=== PATIENT | female | born 1990 | race American Indian/Alaskan Native ===

== ENCOUNTER 2019-01-03 13:01 | Emergency (ER) | payer MEDICAID, OTHER ==
[2019-01-03] MEDS ORDERED: NACL 0.9% 1000 ML 1,000 ML IV ONE (13:14)
--- NOTE | 2019-01-03 13:14 | Emergency Department Report ---
Chief Complaint: Nausea/Vomiting/Diarrhea Stated Complaint: 7WKS /ABD PAIN/DEHYDRATION - HPI History of Present Illness: LMP 11/09 G1 PMH NONE PSH L KNEE RX ZOFRAN GIVEN TO HER BY OBGYN- DONT KNOW NAME NO VAG BLEED OR DC SUPRAPUBIC DC NO CIG/ETOH/DRUGS CC WEAK, FATIGUE, VOMITING MSE COMPLETED MSE screening note: Focused history and physical exam performed. Due to findings the following was ordered: ED Disposition for MSE Condition: Stable
[2019-01-03 14:10] LABS: Hemoglobin 13.1 gm/dl (10.1-14.3); Mean Corpuscular HGB Conc 34 % (30-34); Mean Corpuscular Volume 81 fl (79-97); Platelet Count 370 K/mm3 (140-440); Red Blood Count 4.84 M/mm3 (3.65-5.03); Red Cell Distribution Width 13.5 % (13.2-15.2)
[2019-01-03 14:16] LABS: BUN/Creatinine Ratio 17; Blood Urea Nitrogen 10 mg/dL (7-17); Calcium 9.4 mg/dL (8.4-10.2); Hemolysis Index 5
[2019-01-03 15:00] LABS: Bilirubin,Urine NEG (Negative); Blood,Urine NEG (Negative); Color,Urine Yellow (Yellow); Mucus,Urine 3+ /HPF; Urobilinogen,Urine < 2.0 mg/dL (<2.0)
[2019-01-03 15:02] LABS: HCG Qualitative,Urine Positive (Negative)
[2019-01-03] MEDS ORDERED: REGLAN IV ONE (15:18)
--- NOTE | 2019-01-03 16:02 | Emergency Department Report ---
ED N/V/D HPI - General Chief complaint: Nausea/Vomiting/Diarrhea Stated complaint: 7WKS /ABD PAIN/DEHYDRATION Time Seen by Provider: 01/03/19 13:14 Source: patient, family Mode of arrival: Wheelchair Limitations: No Limitations - History of Present Illness Initial comments: This is a 28-year-old female who is 7 weeks nontoxic, well nourished in appearance, no acute signs of distress presents to the ED with c/o of nausea and vomiting. Patient describes vomiting as food content. Patient denies any vaginal bleeding. Patient denies any abdominal pain, pelvic pain, chest pain, short of breath, fever, chills, headache, stiff neck, numbness or tingling. Patient denies any diarrhea or constipation. Patient denies any urinary sympto ms. Patient denies any recent travels. Patient denies any drug allergies significant past medical history. MD complaint: nausea, vomiting Description of Vomiting: food contents Associated Abdominal Pain: No Radiation: none Pain Scale: 0 Improves with: none Worsens with: none Associated Symptoms: nausea/vomiting. denies: myalgias, chest pain, cough, diaphoresis, fever/chills, headaches, loss of appetite, malaise, rash, dysuria, shortness of breath, syncope, weakness - Related Data Previous Rx's Medication Instructions Recorded Last Taken Type Acetaminophen/Codeine [Tylenol #3] 1 tab PO TID PRN #20 tab 02/10/15 Unknown Rx Ciprofloxacin HCl [Cipro] 500 mg PO BID #14 tablet 02/10/15 Unknown Rx Promethazine [Phenergan] 25 mg PO BID #14 tab 02/10/15 Unknown Rx Metoclopramide [Reglan] 10 mg PO BID PRN #20 tab 01/03/19 Unknown Rx Allergies Allergy/AdvReac Type Severity Reaction Status Date / Time No Known Allergies Allergy Unverified 02/09/15 17:32 ED Review of Systems ROS: Stated complaint: 7WKS /ABD PAIN/DEHYDRATION Other details as noted in HPI Constitutional: denies: chills, fever Eyes: denies: eye pain, eye discharge, vision change ENT: denies: ear pain, throat pain Respiratory: denies: cough, shortness of breath, wheezing Cardiovascular: denies: chest pain, palpitations Endocrine: no symptoms reported Gastrointestinal: nausea, vomiting. denies: abdominal pain, diarrhea Genitourinary: denies: urgency, dysuria, discharge Musculoskeletal: denies: back pain, joint swelling, arthralgia Skin: denies: rash, lesions Neurological: denies: headache, weakness, paresthesias Psychiatric: denies: anxiety, depression Hematological/Lymphatic: denies: easy bleeding, easy bruising ED Past Medical Hx - Past Medical History Previous Medical History?: No - Surgical History Past Surgical History?: Yes Additional Surgical History: L Knee surgery - Social History Smoking Status: Unknown if ever smoked Substance Use Type: None - Medications Home Medications: Home Medications Medication Instructions Recorded Confirmed Last Taken Type Acetaminophen/Codeine [Tylenol #3] 1 tab PO TID PRN #20 tab 02/10/15 Unknown Rx Ciprofloxacin HCl [Cipro] 500 mg PO BID #14 tablet 02/10/15 Unknown Rx Promethazine [Phenergan] 25 mg PO BID #14 tab 02/10/15 Unknown Rx Metoclopramide [Reglan] 10 mg PO BID PRN #20 tab 01/03/19 Unknown Rx ED Physical Exam - General Limitations: No Limitations General appearance: alert, in no apparent distress - Head Head exam: Present: atraumatic, normocephalic - Neck Neck exam: Present: normal inspection, full ROM - Respiratory Respiratory exam: Present: normal lung sounds bilaterally. Absent: respiratory distress, wheezes, rales, rhonchi, stridor, chest wall tenderness, accessory muscle use, decreased breath sounds, prolonged expiratory - Cardiovascular Cardiovascular Exam: Present: regular rate, normal rhythm, normal heart sounds. Absent: bradycardia, tachycardia, irregular rhythm, systolic murmur, diastolic murmur, rubs, gallop - GI/Abdominal GI/Abdominal exam: Present: soft, normal bowel sounds. Absent: distended, tenderness, guarding, rebound, rigid, diminished bowel sounds - Extremities Exam Extremities exam: Present: normal inspection, full ROM - Back Exam Back exam: Present: normal inspection, full ROM. Absent: tenderness, CVA tenderness (R), CVA tenderness (L), muscle spasm, paraspinal tenderness, vertebral tenderness, rash noted - Neurological Exam Neurological exam: Present: alert, oriented X3 - Psychiatric Psychiatric exam: Present: normal affect, normal mood - Skin Skin exam: Present: warm, dry, intact, normal color. Absent: rash ED Course Vital Signs 01/03/19 13:12 Temperature 98.1 F Pulse Rate 88 Respiratory 20 Rate Blood Pressure 117/77 O2 Sat by Pulse 98 Oximetry - Reevaluation(s) Reevaluation #1: 01/03/19 15:59 Patient is speaking in full sentences with no signs of distress noted. ED Medical Decision Making - Lab Data Result diagrams: 01/03/19 13:33 01/03/19 13:33 - Medical Decision Making This is a 28-year-old female that presents with hyperemesis gravidarum. Patient is stable and was examined by me. There is no abdominal tenderness. Negative signs of symptoms of appendicitis. Labs obtained. UA obtained. Vital signs are stable prior to discharge. Patient received reglan and 1L Normal saline in the ED which patient stated symptoms has resolved and subsided. A by mouth challenge has been obtained and patient tolerated well with no nausea vomiting. Patient was notified of strict precautions of appendicitis symptoms and to return to the ED if symptoms occurs as soon as possible. Patient was also instructed to Follow-up with a OBGYN doctor in 3-5 days or if symptoms worsen and continue return to emergency room as soon as possible. At time of discharge, the patient does not seem toxic or ill in appearance. No acute signs of distress noted. Patient agrees to discharge treatment plan of care. No further questions noted by the patient. Critical care attestation.: If time is entered above; I have spent that time in minutes in the direct care of this critically ill patient, excluding procedure time. ED Disposition Clinical Impression: Hyperemesis gravidarum Disposition: DC-01 TO HOME OR SELFCARE Is pt being admited?: No Does the pt Need Aspirin: No Condition: Stable Instructions: Hyperemesis Gravidarum (ED) Additional Instructions: Follow-up with a OBGYNe doctor in 3-5 days or if symptoms worsen and continue return to emergency room as soon as possible. Prescriptions: Metoclopramide [Reglan] 10 mg PO BID PRN #20 tab PRN Reason: Nausea Referrals: ELDER CHEEK MD [Primary Care Provider] - 3-5 Days REZA QUAN MD [Staff Physician] - 3-5 Days [facility] [Provider Group] - 3-5 Days Forms: Work/School Release Form(ED)
[2019-01-03 16:31] VITALS: BP 110/59
== END 2019-01-03 16:30 | disposition home or self-care (01) ==
LOC: ED 13:01
DX: O21.0 Mild hyperemesis gravidarum (principal); Z3A.01 Less than 8 weeks gestation of pregnancy
CPT/HCPCS: 36415; 80048; 81001; 81025; 84702; 85027; 96361; 96374; 99283; J2765; J7030

== ENCOUNTER 2019-01-17 02:23 | Emergency (ER) | payer OTHER ==
[2019-01-17 02:52] VITALS: BP 118/72
[2019-01-17 03:40] LABS: Basophils % (Auto) 0.6 % (0.0-1.8); Eosinophils % (Auto) 0.6 % (0.0-4.3); Hematocrit 36.3 % (30.3-42.9); Hemoglobin 12.1 gm/dl (10.1-14.3); Lymphocytes # (Auto) 1.9 K/mm3 (1.2-5.4); Lymphocytes % (Auto) 27.7 % (13.4-35.0); Mean Corpuscular HGB Conc 33 % (30-34); Mean Corpuscular Volume 80 fl (79-97); Monocytes # (Auto) 0.7 K/mm3 (0.0-0.8); Monocytes % (Auto) 9.7 % (0.0-7.3); Platelet Count 390 K/mm3 (140-440); Red Blood Count 4.52 M/mm3 (3.65-5.03); Red Cell Distribution Width 13.3 % (13.2-15.2)
[2019-01-17 05:04] LABS: Bacteria,Urine 1+ /HPF (Negative); Bilirubin,Urine NEG (Negative); Blood,Urine NEG (Negative); Color,Urine Yellow (Yellow); Mucus,Urine 2+ /HPF
--- NOTE | 2019-01-17 06:37 | Ultrasound Report ---
PROCEDURE: US OB <= 14 WEEKS FETUS TECHNIQUE: Transabdominal grayscale, color Doppler and M-mode first trimester ultrasound HISTORY: abdominal COMPARISONS: None FINDINGS: A single living intrauterine is present with recorded cardiac activity 173 bpm and crown-ru mp length of approximately 2.9 cm corresponding to estimated gestational age of 9 weeks 5 days and de livery date of 08/17/2019. No perigestational hemorrhage identified. Normal-appearing 4 mm yolk sac. F unctional left ovarian cyst likely a corpus luteum. Ovaries are otherwise sonographically unremarkabl e and measure 2.1 x 1.5 x 1.8 cm on the right and 2.8 x 2.2 x 2.5 cm on the left. No significant free fluid identified in the pelvis. IMPRESSION: Single living intrauterine with estimated gestational age of 9 weeks 5 days corresponding t o delivery date of 08/17/2019 This document is electronically signed by Johan Reynaga MD., January 17 2019 06:35:26 AM ET
--- NOTE | 2019-01-17 07:50 | Emergency Department Report ---
ED HPI - General Chief complaint: Abdominal Pain Stated complaint: 8 WKS PREG/ABD PAIN Time Seen by Provider: 01/17/19 07:03 Source: patient Mode of arrival: Ambulatory Limitations: No Limitations - History of Present Illness Initial comments: This is a 28-year-old female nontoxic, well nourished in appearance, no acute signs of distress presents to the ED with c/o of pelvic cramping. Patient denies any nausea or vomiting. Patient describes pelvic pain as cramping and aching with level of 3/10 diffuse. Patient denies chest pain, s hort of breath, fever, chills, headache, stiff neck, numbness or tingling. Patient denies any diarrhea or constipation. Patient denies any recent travels. Patient denies any allergies or significant past medical history. Patient states she is currently about 8 weeks . Patient stated she does have a OBGYN that she follows within normal limits. Patient denies any vaginal bleeding, urinary symptoms, or vaginal discharge. MD Complaint: other (pelvic pain) -: week(s) Location: pelvis Radiation: none Severity: mild Severity scale (0 -10): 3 Quality: cramping, aching Consistency: intermittent Improves with: none Worsens with: none Associated symptoms: denies: nausea/vomiting, vaginal discharge, abdominal pain, dysuria, headache, vision changes, malaise, dysparuenia, rash, seizure, shortness of breath, syncope, weakness Vaginal bleeding: none :: Yes Number of weeks : 8 Pre-rosa care: none - Related Data Previous Rx's Medication Instructions Recorded Last Taken Type Acetaminophen/Codeine [Tylenol #3] 1 tab PO TID PRN #20 tab 02/10/15 Unknown Rx Ciprofloxacin HCl [Cipro] 500 mg PO BID #14 tablet 02/10/15 Unknown Rx Promethazine [Phenergan] 25 mg PO BID #14 tab 02/10/15 Unknown Rx Metoclopramide [Reglan] 10 mg PO BID PRN #20 tab 01/03/19 Unknown Rx Nitrofurantoin [place]/M-Cryst 100 mg PO Q12HR #14 capsule 01/17/19 Unknown Rx [Macrobid CAP] Allergies Allergy/AdvReac Type Severity Reaction Status Date / Time No Known Allergies Allergy Unverified 02/09/15 17:32 ED Review of Systems ROS: Stated complaint: 8 WKS PREG/ABD PAIN Other details as noted in HPI Constitutional: denies: chills, fever Eyes: denies: eye pain, eye discharge, vision change ENT: denies: ear pain, throat pain Respiratory: denies: cough, shortness of breath, wheezing Cardiovascular: denies: chest pain, palpitations Endocrine: no symptoms reported Gastrointestinal: other (pelvic pain). denies: abdominal pain, nausea, diarrhea Genitourinary: denies: urgency, dysuria, discharge Musculoskeletal: denies: back pain, joint swelling, arthralgia Skin: denies: rash, lesions Neurological: denies: headache, weakness, paresthesias Psychiatric: denies: anxiety, depression Hematological/Lymphatic: denies: easy bleeding, easy bruising ED Past Medical Hx - Past Medical History Previous Medical History?: No - Surgical History Past Surgical History?: Yes Additional Surgical History: L Knee surgery - Social History Smoking Status: Current Every Day Smoker Substance Use Type: None - Medications Home Medications: Home Medications Medication Instructions Recorded Confirmed Last Taken Type Acetaminophen/Codeine [Tylenol #3] 1 tab PO TID PRN #20 tab 02/10/15 Unknown Rx Ciprofloxacin HCl [Cipro] 500 mg PO BID #14 tablet 02/10/15 Unknown Rx Promethazine [Phenergan] 25 mg PO BID #14 tab 02/10/15 Unknown Rx Metoclopramide [Reglan] 10 mg PO BID PRN #20 tab 01/03/19 Unknown Rx Nitrofurantoin [place]/M-Cryst 100 mg PO Q12HR #14 capsule 01/17/19 Unknown Rx [Macrobid CAP] ED Physical Exam - General Limitations: No Limitations General appearance: alert, in no apparent distress - Head Head exam: Present: atraumatic, normocephalic - Eye Eye exam: Present: normal appearance - Neck Neck exam: Present: normal inspection, full ROM. Absent: tenderness, meningismus, lymphadenopathy - Respiratory Respiratory exam: Present: normal lung sounds bilaterally. Absent: respiratory distress, wheezes, rales, rhonchi, stridor, chest wall tenderness, accessory muscle use, decreased breath sounds, prolonged expiratory - Cardiovascular Cardiovascular Exam: Present: regular rate, normal rhythm, normal heart sounds. Absent: systolic murmur, diastolic murmur, rubs, gallop - GI/Abdominal GI/Abdominal exam: Present: soft, normal bowel sounds. Absent: distended, tenderness, guarding, rebound, rigid, diminished bowel sounds, hyperactive bowel sounds, hypoactive bowel sounds - Extremities Exam Extremities exam: Present: normal inspection, full ROM - Back Exam Back exam: Present: normal inspection, full ROM. Absent: tenderness, CVA tenderness (R), CVA tenderness (L), muscle spasm, paraspinal tenderness, vertebral tenderness, rash noted - Neurological Exam Neurological exam: Present: alert, oriented X3 - Psychiatric Psychiatric exam: Present: normal affect, normal mood - Skin Skin exam: Present: warm, dry, intact, normal color. Absent: rash ED Course Vital Signs 01/17/19 02:45 Temperature 98.1 F Pulse Rate 95 H Respiratory 18 Rate Blood Pressure 118/72 O2 Sat by Pulse 98 Oximetry - Reevaluation(s) Reevaluation #1: 01/17/19 07:51 Patient is speaking in full sentences with no signs of distress noted. ED Medical Decision Making - Lab Data Result diagrams: 01/17/19 03:14 - Medical Decision Making This is a 28-year-old female that presents with pelvic pain with urinary tract infection. Patient is stable and was examined by me. There is no abdominal tenderness. Negative signs of symptoms of appendicitis. Labs obtained. UA obtained. US OB obtained and dictated by the radiologist. Patient is notified of the report with no questions noted by the patient. Vital signs are stable prior to discharge. Patient was also instructed to Follow-up with a OBGYN doctor in 3-5 days or if symptoms worsen and continue return to emergency room as soon as possible. At time of discharge, the patient does not seem toxic or ill in appearance. No acute signs of distress noted. Patient agrees to discharge treatment plan of care. No further questions noted by the patient. Critical care attestation.: If time is entered above; I have spent that time in minutes in the direct care of this critically ill patient, excluding procedure time. ED Disposition Clinical Impression: Pelvic pain during UTI (urinary tract infection) Qualifiers: Urinary tract infection type: acute cystitis Hematuria presence: without hematuria Qualified Code(s): N30.00 - Acute cystitis without hematuria Disposition: TO HOME OR SELFCARE Is pt being admited?: No Does the pt Need Aspirin: No Condition: Stable Instructions: (ED), Urinary Tract Infection in Women (ED) Additional Instructions: Follow-up with a OBGYN doctor in 3-5 days or if symptoms worsen and continue return to emergency room as soon as possible. Prescriptions: Nitrofurantoin [place]/M-Cryst [Macrobid CAP] 100 mg PO Q12HR #14 capsule Referrals: PRIMARY CARE, [Referring] - 3-5 Days REZA QUAN MD [Staff Physician] - 3-5 Days [facility] [Provider Group] - 3-5 Days Forms: Work/School Release Form(ED)
== END 2019-01-17 08:00 | disposition home or self-care (01) ==
LOC: ED 02:23
DX: O23.41 Unspecified infection of urinary tract in pregnancy, first trimester (principal); O99.331 Smoking (tobacco) complicating pregnancy, first trimester; F17.200 Nicotine dependence, unspecified, uncomplicated; Z3A.08 8 weeks gestation of pregnancy
CPT/HCPCS: 36415; 76801; 81001; 84702; 85025; 86900; 86901

== ENCOUNTER 2019-03-30 23:47 | Emergency (ER) | payer OTHER ==
[2019-03-30 23:50] VITALS: BP 104/71
[2019-03-31] MEDS ORDERED: TYLENOL PO ONE (00:25)
[2019-03-31] MEDS ORDERED: TYLENOL ONE (00:46)
--- NOTE | 2019-03-31 01:34 | Ultrasound Report ---
PROCEDURE: US OB >= 14 WEEKS FETUS TECHNIQUE: Routine transabdominal imaging was obtained of the pelvis including Doppler interrogation of the fetus. HISTORY: abd pain COMPARISONS: 01/17/2019 FINDINGS: There is a single viable intrauterine with an estimated gestational age of 20 weeks 0 days based on sonographic criteria. The fetus is in transverse position with the head along the maternal r ight side. The amniotic fluid volume appears normal. The placenta is posterior in position and is gra de 0. The heart rate is 152 BPM. The cervix is closed. It measures 3.2 cm in length. A complete survey of organs was not obtained. The EDC is 08/18/2019. IMPRESSION: Single viable IUP, 20 weeks 0 days. The heart rate is 152 BPM.. This document is electronically signed by Herman Enriquez MD., March 31 2019 01:32:58 AM ET
--- NOTE | 2019-03-31 02:26 | Emergency Department Report ---
ED Back Pain/Injury HPI - General Chief Complaint: Fall Stated Complaint: 19.2 WKS FELL DOWN STAIRS Time Seen by Provider: 03/31/19 00:24 Source: patient Limitations: No Limitations - History of Present Illness Initial Comments: pt is a 29 y/o aaf 20 weeks who presents s/p fall verus 5 steps tonight there was no loc pt was immediatley ambulatory after incident pt drove dto ed pt remains ambulatory with steady agait. there no vaginal bleeding no n/v , back pain is 5/10 aching, at this time. there has been no loss or decrease in bowel or bladder function . MD Complaint: back injury Onset/Timin -: days(s) Similar Symptoms Previously: Yes Place: home Radiation: right leg Severity: moderate Severity scale (0 -10): 5 Quality: aching Consistency: constant Improves With: none Worsens With: movement Associated Symptoms: seizure, syncope. denies: weakness, difficulty walking, difficulty urinating, diaphoresis, incontinence, fever/chills, headaches, abdominal pain, malaise Treatments Prior to Arrival: NSAIDS - Related Data Previous Rx's Medication Instructions Recorded Last Taken Type Acetaminophen/Codeine [Tylenol #3] 1 tab PO TID PRN #20 tab 02/10/15 Unknown Rx Ciprofloxacin HCl [Cipro] 500 mg PO BID #14 tablet 02/10/15 Unknown Rx Promethazine [Phenergan] 25 mg PO BID #14 tab 02/10/15 Unknown Rx Metoclopramide [Reglan] 10 mg PO BID PRN #20 tab 01/03/19 Unknown Rx Nitrofurantoin [place]/M-Cryst 100 mg PO Q12HR #14 capsule 01/17/19 Unknown Rx [Macrobid CAP] Acetaminophen [Acetaminophen TAB] 650 mg PO Q6HR PRN #30 tablet 03/31/19 Unknown Rx Menthol/Camphor [[place] 1 applicatio TP QID PRN #1 tube 03/31/19 Unknown Rx Ointment] Allergies Allergy/AdvReac Type Severity Reaction Status Date / Time emely Allergy Angioedema Verified 03/30/19 23:51 ED Review of Systems ROS: Stated complaint: 19.2 WKS FELL DOWN STAIRS Other details as noted in HPI Constitutional: denies: chills, fever Eyes: denies: eye pain, eye discharge, vision change ENT: denies: ear pain, throat pain Respiratory: denies: cough, shortness of breath, wheezing Cardiovascular: denies: chest pain, palpitations Endocrine: no symptoms reported Gastrointestinal: denies: abdominal pain, nausea, vomiting, diarrhea, constipation, hematemesis, melena, hematochezia Genitourinary: denies: urgency, dysuria, frequency, hematuria, discharge Musculoskeletal: back pain. denies: joint swelling, arthralgia, myalgia Skin: denies: rash, lesions Neurological: denies: headache, weakness, paresthesias Psychiatric: denies: anxiety, depression Hematological/Lymphatic: denies: easy bleeding, easy bruising ED Past Medical Hx - Past Medical History Previous Medical History?: No - Surgical History Past Surgical History?: Yes Additional Surgical History: L Knee surgery - Social History Smoking Status: Former Smoker Substance Use Type: None - Medications Home Medications: Home Medications Medication Instructions Recorded Confirmed Last Taken Type Acetaminophen/Codeine [Tylenol #3] 1 tab PO TID PRN #20 tab 02/10/15 Unknown Rx Ciprofloxacin HCl [Cipro] 500 mg PO BID #14 tablet 02/10/15 Unknown Rx Promethazine [Phenergan] 25 mg PO BID #14 tab 02/10/15 Unknown Rx Metoclopramide [Reglan] 10 mg PO BID PRN #20 tab 01/03/19 Unknown Rx Nitrofurantoin [place]/M-Cryst 100 mg PO Q12HR #14 capsule 01/17/19 Unknown Rx [Macrobid CAP] Acetaminophen [Acetaminophen TAB] 650 mg PO Q6HR PRN #30 tablet 03/31/19 Unknown Rx Menthol/Camphor [[place] 1 applicatio TP QID PRN #1 tube 03/31/19 Unknown Rx Ointment] ED Physical Exam - General Limitations: No Limitations General appearance: alert, in no apparent distress - Head Head exam: Present: atraumatic, normocephalic - Eye Eye exam: Present: normal appearance, PERRL, EOMI Pupils: Present: normal accommodation - ENT ENT exam: Present: normal orophraynx, mucous membranes moist, TM's normal bilaterally - Neck Neck exam: Present: normal inspection, full ROM. Absent: tenderness, meningismus, lymphadenopathy - Expanded Neck Exam Expanded Neck exam: Absent: tenderness (no posterior vertebral point tenderness ), midline deformity, anterior neck swelling, thyroid mass, carotid bruit, tracheal deviation - Respiratory Respiratory exam: Present: normal lung sounds bilaterally. Absent: respiratory distress, wheezes, stridor, chest wall tenderness - Cardiovascular Cardiovascular Exam: Present: regular rate, normal rhythm. Absent: systolic murmur, diastolic murmur, rubs, gallop - GI/Abdominal GI/Abdominal exam: Present: soft, normal bowel sounds. Absent: distended, tenderness, guarding, rebound, rigid, bruit, hernia - Rectal Rectal exam: Present: deferred - Extremities Exam Extremities exam: Present: normal inspection - Back Exam Back exam: Present: normal inspection, full ROM, tenderness, muscle spasm, paraspinal tenderness. Absent: CVA tenderness (R), CVA tenderness (L), vertebral tenderness, rash noted - Neurological Exam Neurological exam: Present: alert, oriented X3, CN II-XII intact, normal gait, reflexes normal. Absent: abnormal gait, motor sensory deficit - Psychiatric Psychiatric exam: Present: normal affect, normal mood - Skin Skin exam: Present: warm, dry, intact, normal color. Absent: rash ED Course Vital Signs 03/30/19 23:49 Temperature 97.9 F Pulse Rate 109 H Respiratory 18 Rate Blood Pressure 104/71 [Right] O2 Sat by Pulse 99 Oximetry ED Medical Decision Making - Radiology Data Radiology results: report reviewed, image reviewed US: Single IUP, normal 20 weeks, 0 days, FHR: 152 bmp - Medical Decision Making US: Single IUP, normal 20 weeks, 0 days, FHR: 152 bmp , there is no vaginal bleeding no vaginal discharge. no n/v no abd pain back exam no posterior vertebral point tenderness, mild paraspinus back muscle tenderness. pt advised of same pt will be dc'd to home in stable condition at this time , pt is currenlty a/o x 3 ambulatory with steady gait will be dc'd to home in stable conditiona at this time. pt to home via po and family member. pt wiht nad a this time Critical care attestation.: If time is entered above; I have spent that time in minutes in the direct care of this critically ill patient, excluding procedure time. ED Disposition Clinical Impression: Fall Qualifiers: Encounter type: initial encounter Qualified Code(s): W19.XXXA - Unspecified fall, initial encounter Low back strain Qualifiers: Encounter type: initial encounter Qualified Code(s): S39.012A - Strain of muscle, fascia and tendon of lower back, initial encounter Disposition: TO HOME OR SELFCARE Is pt being admited?: No Does the pt Need Aspirin: No Condition: Stable Instructions: Muscle Strain (ED), Low Back Strain (ED) Prescriptions: Acetaminophen [Acetaminophen TAB] 650 mg PO Q6HR PRN #30 tablet PRN Reason: Pain Menthol/Camphor [[place] Ointment] 1 applicatio TP QID PRN #1 tube PRN Reason: pain Referrals: MIKEY SAMUELS MD [Staff Physician] - 3-5 Days Forms: Work/School Release Form(ED)
== END 2019-03-31 02:35 | disposition home or self-care (01) ==
LOC: ED 23:47
DX: O9A.212 Injury, poisoning and certain other consequences of external causes complicating pregnancy, second trimester (principal); S39.012A Strain of muscle, fascia and tendon of lower back, initial encounter; Z98.890 Other specified postprocedural states; Z87.891 Personal history of nicotine dependence; Z3A.20 20 weeks gestation of pregnancy; Z91.018 Allergy to other foods; W10.9XXA Fall (on) (from) unspecified stairs and steps, initial encounter; Y93.89 Activity, other specified; Y92.009 Unspecified place in unspecified non-institutional (private) residence as the place of occurrence of the external cause; Y99.8 Other external cause status
CPT/HCPCS: 76805